=== PATIENT | male | born 1955 | race Caucasian/White ===

== ENCOUNTER 2017-01-20 00:51 | Outpatient (CLI) | payer MEDICAID | END 2017-01-20 00:52 | disposition critical access hospital (66) | LOC: EMS 00:51 | PROVIDERS: ATTEND Surgery | DX: M54.2 Cervicalgia (principal); R23.9 Unspecified skin changes | CPT/HCPCS: A0425; A0429 ==

== ENCOUNTER 2017-01-20 01:05 | Emergency (ER) | payer MEDICAID ==
--- NOTE | 2017-01-20 01:44 | ED Physician Documentation ---
History of Present Illness - Stated complaint Stated Complaint: NECK PX - Chief complaint Chief Complaint: General - History obtained from History obtained from: Patient, EMS - History of Present Illness Timing: How many days ago (2-3) Pain level max: 10 Pain level now: 10 Radiates to: BUE, R>L Improved by: rest Worsened by: movement - Additonal information Additional information: c/o 2-3 days of gradual onset, constant, progressive neck pain that is worse with movement. Patient says he has h/o similar symptoms associated with spinal abscess requiring operative management. IVDA (heroin) Review of Systems Constitutional: reports: Sweats. denies: Fever, Chills Eyes: reports: Reviewed and negative Ears: reports: Reviewed and negative Nose: reports: Reviewed and negative Throat: reports: Reviewed and negative Cardiac: reports: Reviewed and negative Respiratory: reports: Reviewed and negative GI: reports: Reviewed and negative : reports: Reviewed and negative Skin: reports: Rash (RUE x 2 weeks) Musculoskeletal: reports: Neck pain Neurologic: reports: Focal weakness, Numbness. denies: Headache PD PAST MEDICAL HISTORY - Past Medical History Past Medical History: Yes Cardiovascular: None Respiratory: COPD Neuro: None Endocrine/Autoimmune: None GI: Cirrhosis : Benign prostate hypertrophy HEENT: None Psych: Anxiety Musculoskeletal: Osteoarthritis Other Past Medical History: abcesses, heroin abuse since 1971 - Past Surgical History Past Surgical History: Yes Ortho: Rotator cuff repair - Present Medications Home Medications: Ambulatory Orders Medication Instructions Recorded Confirmed No Known Home Medications [No 01/20/17 01/20/17 Known Home Medications] - Allergies Allergies/Adverse Reactions: Allergies Allergy/AdvReac Type Severity Reaction Status Date / Time No Known Drug Allergies Allergy Verified 01/20/17 01:11 - Social History Does the pt smoke?: Yes Smoking Status: Current every day smoker Does the pt drink ETOH?: No Does the pt have substance abuse?: Yes Substance Use and Type: Heroin - Immunizations Immunizations are current?: No - POLST Patient has POLST: No PD ED PE NORMAL - Vitals Vital signs reviewed: Yes - General General: Alert and oriented X 3, Well developed/nourished, Other (appears to be in painful distress) - HEENT HEENT: Moist mucous membranes - Neck Neck: No bony TTP, Other (TTP midline and right paracervical neck) - Cardiac Cardiac: RRR, No murmur - Respiratory Respiratory: No respiratory distress, Clear bilaterally - Abdomen Abdomen: Soft, Non tender - Neuro Neuro: No motor deficit, No sensory deficit PD ED PE EXPANDED - Extremities ISMA UE/Hands Visual: 1 - deformity (extensive tissue loss with purulent drainage from multiple sites , erythematous margins), tenderness Results - Vitals Vitals: Vital Signs - 24 hr 01/20/17 01/20/17 10:01 11:10 Temperature 36.3 C L Heart Rate 100 101 H Respiratory 20 22 Rate Blood Pressure 123/84 H 126/88 H O2 Saturation 98 98 Oxygen O2 Source Room air - Labs Labs: Laboratory Tests 01/20/17 01/20/17 01/20/17 01:50 01:50 01:50 WBC 5.9 RBC 3.98 L Hgb 11.5 L Hct 34.5 L MCV 86.8 MCH 29.0 MCHC 33.4 RDW 14.9 Plt Count 125 L MPV 8.7 Neut # 4.3 Lymph # 0.8 L [place] # 0.6 Eos # 0.1 Baso # 0.0 Absolute Nucleated RBC 0.00 Nucleated RBCs 0.1 Sodium 135 Potassium 4.1 Chloride 100 L Carbon Dioxide 27 Anion Gap 8.0 BUN 8 Creatinine 0.7 Estimated GFR (MDRD) 114 Glucose 132 H Lactic Acid 0.7 Calcium 8.2 L Total Bilirubin 0.6 AST 21 ALT 19 Alkaline Phosphatase 73 Total Protein 7.5 Albumin 2.9 L Globulin 4.6 H Albumin/Globulin Ratio 0.6 L Lipase 11 L - Rads (name of study) CT neck Radiology: Prelim report reviewed, See rad report CT RUE Radiology: Prelim report reviewed, See rad report PD MEDICAL DECISION MAKING - ED course Complexity details: reviewed old records, reviewed results, re-evaluated patient , considered differential, d/w patient ED course: D/W Dr. Burns, recommends CT neck and CT RUE. After these were resulted, she recommends ED surgical consult. D/W Dr. Arce who came to ED, evaluated patient, and recommends transfer. D/W Dr. Chavez who accepts to [facility], he recommends IV PCN 4million units, 1200mg Clindamycin IV, 1.2 grams Vancomycin IV , 500mg IV levaquin. Penicillin given in ED, vancomycin started, but this was still running at time of transfer and thus the clindamycin and levaquin not given in [facility] ED Departure - Departure Disposition: 02 Transfer Acute Care Hosp Clinical Impression: Cellulitis of arm, right, Neck pain Condition: Stable Discharge Date/Time: 01/20/17 11:08
[2017-01-20] MEDS ORDERED: HYDROmorphone 1 MG/ML SYRINGE ONE ×5 (02:06→07:38)
[2017-01-20] MEDS ORDERED: HYDROmorphone 1 MG/ML SYRINGE IVP STA ×6 (02:06→07:34)
[2017-01-20 02:16] LABS: BASOPHILS % (AUTO) 0.4 %; EOSINOPHILS # (AUTO) 0.1 10^3/uL (0.0-0.7); EOSINOPHILS % (AUTO) 1.6 %; HCT - HEMATOCRIT 34.5 % (42.0-52.0); HGB - HEMOGLOBIN 11.5 g/dL (14.0-18.0); LYMPHOCYTES # (AUTO) 0.8 10^3/uL (1.5-3.5); LYMPHOCYTES % (AUTO) 14.1 %; MEAN CORPUSCULAR HGB CONC 33.4 g/dL (32.0-36.0); MEAN CORPUSCULAR VOLUME 86.8 fL (80.0-94.0); MEAN PLATELET VOLUME 8.7 fL (7.4-11.4); MONOCYTES # (AUTO) 0.6 10^3/uL (0.0-1.0); MONOCYTES % (AUTO) 10.2 %; NEUTROPHILS # (AUTO) 4.3 10^3/uL (1.5-6.6); NEUTROPHILS % (AUTO) 73.7 %; NUCLEATED RED BLOOD CELLS AUTO 0.1 /100WBC; RED BLOOD COUNT 3.98 10^6/uL (4.70-6.10); RED CELL DISTRIBUTION WIDTH 14.9 % (12.0-15.0); UNCORRECTED WHITE BLOOD COUNT 5.9 x10^3/uL; WHITE BLOOD COUNT 5.9 x10^3/uL (4.8-10.8)
[2017-01-20 02:25] LABS: ALBUMIN/GLOBULIN RATIO 0.6 (1.0-2.2); BILIRUBIN,TOTAL 0.6 mg/dL (0.2-1.0); CALCIUM 8.2 mg/dL (8.5-10.3); CREATININE 0.7 mg/dL (0.6-1.2); POTASSIUM 4.1 mmol/L (3.5-5.0); TOTAL PROTEIN 7.5 g/dL (6.7-8.2)
--- NOTE | 2017-01-20 05:29 | CT Preliminary Report ---
Exam: CT Upper Extremity Right W/O IMPRESSION: 1. Extensive subcutaneous edema consistent with cellulitis. Abscesses are not excluded, but poorly se en on this noncontrast examination. 2. Multiple skin defects. 3. No soft tissue gas identified. 4. No focal area of bone destruction seen. [facility] SITE ID: [id number]
--- NOTE | 2017-01-20 05:32 | CT Report ---
EXAM: RIGHT UPPER EXTREMITY CT WITHOUT CONTRAST EXAM DATE: 01/20/2017 04:49 AM. CLINICAL HISTORY: Infection. Multiple abscesses. COMPARISON: None. TECHNIQUE: Thin-section axial images were acquired of the upper extremity from the elbow to the hand without contrast. Post-processing: Coronal and sagittal reformats. Other: None. In accordance with CT protocol optimization, one or more of the following dose reduction techniques w ere utilized for this exam: automated exposure control, adjustment of mA and/or KV based on patient s ize, or use of iterative reconstructive technique. FINDINGS: Bones: No fracture seen. No focal area of bone destruction identified. Joints: No dislocation seen. Degenerative changes. Musculature: Unremarkable. Other: Extensive subcutaneous edema. Multiple skin defects. Difficult to exclude abscesses on this no ncontrast examination. No soft tissue gas identified. IMPRESSION: 1. Extensive subcutaneous edema consistent with cellulitis. Abscesses are not excluded, but poorly se en on this noncontrast examination. 2. Multiple skin defects. 3. No soft tissue gas identified. 4. No focal area of bone destruction seen. [facility] Referring Provider Line: [phone] SITE ID: [id number]
--- NOTE | 2017-01-20 05:35 | CT Preliminary Report ---
Exam: CT Cervical Spine W/O IMPRESSION: 1. Postoperative changes and degenerative changes. No acute osseous abnormality identified. 2. No obvious abscess seen on this noncontrast examination. 3. Lung apices show patchy infiltrates bilaterally. 4. Suspect tracheomalacia. [facility] SITE ID: [id number]
--- NOTE | 2017-01-20 05:38 | CT Report ---
EXAM: CT CERVICAL SPINE WITHOUT CONTRAST DATE: 01/20/2017 05:12 AM HISTORY: Neck pain. History of spinal abscesses. COMPARISONS: None. TECHNIQUE: Thin-section axial images were acquired of the cervical spine without contrast. Post-proce ssing: Coronal and sagittal reformats. Other: None. In accordance with CT protocol optimization, one or more of the following dose reduction techniques w ere utilized for this exam: automated exposure control, adjustment of mA and/or KV based on patient s ize, or use of iterative reconstructive technique. FINDINGS: Alignment: Unremarkable. Bones: Posterior metallic fusion from C2-C5. Laminectomy at C3 and C4. No fracture seen. No focal are a of bone destruction identified. Interspace Levels/Facets: Degenerative disk disease and degenerative joint disease at all levels. Other: No prevertebral soft tissue swelling. No obvious abscess identified on this noncontrast examin ation. Suspect tracheomalacia. Patchy bilateral infiltrates. IMPRESSION: 1. Postoperative changes and degenerative changes. No acute osseous abnormality identified. 2. No obvious abscess seen on this noncontrast examination. 3. Lung apices show patchy infiltrates bilaterally. 4. Suspect tracheomalacia. [facility] Referring Provider Line: [phone] SITE ID: [id number]
[2017-01-20] MEDS ORDERED: LORazepam 2 MG/ML SYRINGE IVP STA (05:54)
[2017-01-20] MEDS ORDERED: LORazepam 2 MG/ML SYRINGE ONE (05:57)
[2017-01-20] MEDS ORDERED: MORPHINE 2 MG/ML SYRINGE IVP STA (09:06)
[2017-01-20] MEDS ORDERED: MORPHINE 10 MG/ML VIAL ONE (09:07)
[2017-01-20] MEDS ORDERED: PENICILLIN POTASSIUM IV STA (09:36)
[2017-01-20] MEDS ORDERED: SODIUM CHLORIDE 0.9% IV STA ×2 (09:36→09:44)
[2017-01-20] MEDS ORDERED: VANCOMYCIN IV STA (09:44)
[2017-01-20 11:14] VITALS: BP 126/88
== END 2017-01-20 11:08 | disposition short-term general hospital (02) ==
LOC: EDUNIT# → ED 01:05
DX: L03.113 Cellulitis of right upper limb (principal); M54.2 Cervicalgia; F11.10 Opioid abuse, uncomplicated; F17.200 Nicotine dependence, unspecified, uncomplicated
CPT/HCPCS: 36415; 72125; 73200; 80053; 83605; 83690; 85025; 96365; 96367; 96375; 96376; 99284; 99285; J1170; J2060; J3370

== ENCOUNTER 2017-01-20 11:10 | Outpatient (CLI) | payer MEDICAID | END 2017-01-20 11:11 | disposition short-term general hospital (02) | LOC: EMS 11:10 | PROVIDERS: ATTEND Surgery | DX: M54.2 Cervicalgia (principal); S51.801A Unspecified open wound of right forearm, initial encounter; X58.XXXA Exposure to other specified factors, initial encounter | CPT/HCPCS: A0425; A0426 ==